=== PATIENT | male | born 1975 | race Caucasian/White ===

== ENCOUNTER → 2021-09-16 | Outpatient (CLI) | payer OTHER ==
--- NOTE | ~2021-09-16 | PFR/MVV ---
[facility] [place] [address] PULMONARY FUNCTION MVV/REPORT Name: JO ANNCONCHA Room #: [facility]#: [id number] Admission: 09/16/21 Attend Phys: Eduardo Riggs MD Discharge: Date of : 71 Report #: [id number] THIS REPORT FOR: //name// >> SPIROMETRY: (BTPS) Height: in cm Weight: lbs kg Exam Date: PRE-RX POST-RX PRED BEST %PRED BEST %PRED %CHG FVC LITERS . . . . . . FEV1 LITERS . . . . . . FEV1/FVC % . . . . . . TXE41-96% L/Sec . . . . . . PEF L/SEC . . . . . . FEF50/FIF50 UNITLESS . . . . . . MVV L/Min . . . f 1/Min . . . >> LUNG VOLUMES: (BTPS) PRE-RX POST-RX PRED AVG %PRED AVG %PRED %CHG VC Liters . . . . . . TLC Liters . . . . . . RV Liters . . . . . . RV/TLC % . . . . . . FRC PL Liters . . . . . . FRC N2 Liters . . . . . . ERV Liters . . . . . . IC Liters . . . . . . >> DIFFUSION: DLCO ml/Min/mmHg . . . . . . DL Charmaine ml/Min/mmHg . . . . . . DLCO/VA ml/Min/mmHg . . . . . . VA Liters . . . . . . COMMENTS: COMMENTS: >> RESISTANCE: [facility] [address] [place] [address] PULMONARY FUNCTION MVV/REPORT Name: JO ANNCONCHA Room #: [facility]#: [id number] Admission: 09/16/21 Attend Phys: Eduardo Riggs MD Discharge: Date of : 71 Report #: [id number] PRE-RX PRED AVG %PRED Raw Total cmH20/L/Sec . . . Raw Insp cmH20/L/Sec . . . Raw Exp cmH20/L/Sec . . . Raw cmH20/L/Sec . . . Gaw L/Sec/cmH20 . . . sRaw cmH20 Sec . . . sGaw l/cmH20 Sec . . . Vtq Liters . . . # = OUTSIDE 95% CONFIDENCE INTERVAL CALIBRATION: PRED: 3.00 ACTUAL: EXP 3.01 INSP 3.02 [facility]-[id number] [facility]-- [id number] >> INTERPRETATION/IMPRESSION: METHACHOLINE CHALLENGE TEST METHACHOLINE CHALLENGE: Methacholine challenge test was completed in routine standard fashion. FEV1 baseline was 4.03 liters. With increasing doses of methacholine, there was no significant decline in pulmonary function. FEV1 jennifer is 3.94 L, roughly a 2% change with no significant change with bronchodilator therapy. IMPRESSION: This is a negative methacholine challenge test. By: Griffin Cordova MD /nt
== END ==
LOC: CAT 10:33
PROVIDERS: ATTEND Internal Medicine
DX: R06.02 Shortness of breath (principal); Z86.16 Personal history of COVID-19; M25.70 Osteophyte, unspecified joint